=== PATIENT | female | born 1945 ===

== ENCOUNTER → 2017-12-02 | Outpatient (CLI) | payer OTHER | END | disposition home or self-care (01) | LOC: LAB 10:51 | DX: Z86.010 Personal history of colon polyps (principal); K57.30 Diverticulosis of large intestine without perforation or abscess without bleeding ==

== ENCOUNTER 2017-12-03 08:20 | Outpatient (CLI) | payer OTHER | END 2017-12-03 08:32 | disposition home or self-care (01) | LOC: TOM 08:20 | DX: Z86.010 Personal history of colon polyps (principal); K57.30 Diverticulosis of large intestine without perforation or abscess without bleeding ==

== ENCOUNTER 2018-11-29 08:40 | Outpatient (CLI) | payer OTHER | END 2018-11-29 08:56 | disposition home or self-care (01) | LOC: MRI 08:40 → TOM 08:40 → MRI 08:56 | DX: Z80.3 Family history of malignant neoplasm of breast (principal); D68.62 Lupus anticoagulant syndrome; E72.11 Homocystinuria; E72.12 Methylenetetrahydrofolate reductase deficiency; D68.59 Other primary thrombophilia; Z79.01 Long term (current) use of anticoagulants; D89.0 Polyclonal hypergammaglobulinemia; D51.3 Other dietary vitamin B12 deficiency anemia; D51.8 Other vitamin B12 deficiency anemias; E55.9 Vitamin D deficiency, unspecified; N18.3 Chronic kidney disease, stage 3 (moderate); E08.65 Diabetes mellitus due to underlying condition with hyperglycemia; M15.0 Primary generalized (osteo)arthritis; Z13.0 Encounter for screening for diseases of the blood and blood-forming organs and certain disorders involving the immune mechanism; E08.9 Diabetes mellitus due to underlying condition without complications; R73.09 Other abnormal glucose; I10 Essential (primary) hypertension; M33.22 Polymyositis with myopathy; N85.01 Benign endometrial hyperplasia; E03.8 Other specified hypothyroidism; E78.49 Other hyperlipidemia; I63.89 Other cerebral infarction; I73.89 Other specified peripheral vascular diseases ==